=== PATIENT | female | born 1970 | race Caucasian/White ===

== ENCOUNTER → 2020-04-01 | Outpatient (CLI) | payer OTHER ==
[2020-04-01 13:01] LABS: HEMATOCRIT 42.3 % (36.0-47.0); HEMOGLOBIN 13.4 g/dl (12.0-15.5); MEAN CORPUSCULAR HEMOGLOBIN 29.8 pg (27.0-33.0); MEAN CORPUSCULAR HGB CONC 31.7 g/dl (32.0-36.5); PLATELET COUNT, AUTOMATED 229 10^3/uL (150-450); WHITE BLOOD COUNT 6.8 10^3/uL (4.0-10.0)
[2020-04-01 13:32] LABS: ALBUMIN 4.1 GM/DL (3.2-5.2); ALT/SGPT 22 U/L (12-78); BILIRUBIN,TOTAL 0.4 MG/DL (0.2-1.0); BLOOD UREA NITROGEN 13 MG/DL (7-18); CALCIUM LEVEL 9.2 MG/DL (8.5-10.1); CARBON DIOXIDE LEVEL 31 MEQ/L (21-32); CHLORIDE LEVEL 106 MEQ/L (98-107); CHOLESTEROL LEVEL 253 MG/DL (<200); CHOLESTEROL RISK RATIO 5.883 (<5); CREATININE FOR GFR 0.69 MG/DL (0.55-1.30); GLOMERULAR FILTRATION RATE > 60.0 (>51); GLUCOSE, FASTING 65 MG/DL (70-100); HDL CHOLESTEROL 43 MG/DL (>40); LDL CHOLESTEROL 167 MG/DL (<100); NON-HDL-C 210 MG/DL; POTASSIUM SERUM 4.2 MEQ/L (3.5-5.1); SODIUM LEVEL 140 MEQ/L (136-145); TOTAL PROTEIN 7.2 GM/DL (6.4-8.2); TRIGLYCERIDES LEVEL 215 MG/DL (<150)
[2020-04-01 13:33] LABS: TOTAL 25(OH) VITAMIN D 44.4 NG/ML (30.0-100.0)
[2020-04-01 13:54] LABS: HEMOGLOBIN A1c 5.4 %
--- NOTE | 2020-04-11 18:43 | ECGEPIP ---
[facility] Test Date: 2020-04-01 Pat Name: PASQUALE GIBSON Department: Room: - Gender: Female Employee Relations Assistant: SUMMER : 1970 Requested By: Alycia Evans Order Number: [id number] Reading MD: Indra Perez Measurements Intervals [place] Rate: 55 P: 34 MA: 202 QRS: 10 QRSD: 74 T: -7 QT: 408 QTc: 391 Interpretive Statements SINUS BRADYCARDIA NONSPECIFIC ST/T ABN'S CLINICAL CORRELATION ADVISED SEE DOWNTIME SCANNED REPORT
--- NOTE | 2020-04-21 13:20 | REP ---
TWO-VIEW CHEST HISTORY: Hypertension and fatigue. COMPARISON: None. FINDINGS: Two views of the chest are performed. There is no acute infiltrate. Lungs are clear. Heart is normal in size. Mediastinal silhouette is unremarkable. There are mild diffuse degenerative changes of the spine. IMPRESSION: No active pulmonary disease. MTDD
== END ==
LOC: M LAB 11:35
PROVIDERS: ATTEND Family Medicine
DX: I10 Essential (primary) hypertension (principal)

== ENCOUNTER → 2020-04-08 | Outpatient (CLI) | payer OTHER ==
--- NOTE | 2020-04-09 10:01 | REPMRS ---
Patient History The patient states she has not had a clinical breast exam in over a year. Digital Woman Screen Mammo: April 08, 2020 - Exam #: [id number] Bilateral CC and MLO view(s) were taken. Technologist: Ioana Rosario Technologist Prior study comparison: February 23, 2016, bilateral digital woman screen mammo, performed at [facility]. May 29, 2012, bilateral digital woman screen mammo, performed at [facility]. FINDINGS: There are scattered fibroglandular densities. The [place] volumetric breast density category is:B. There has been no change in the appearance of the mammogram from the prior studies. There is a mild amount of scattered fibroglandular density which is fairly symmetric. There is no interval development of dominant mass, architectural distortion, or grouped microcalcification suggestive of malignancy. 3-D tomosynthesis shows no additional findings. Assessment: BI-RADS/ACR category 1 mammogram. Negative Mammogram. Recommendation Routine screening mammogram of both breasts in 1 year (for women over age 40). This patient's Lifetime Breast Cancer Risk is estimated at 8.0 %. This mammogram was interpreted with the aid of an FDA-approved computer-aided dectection system. Electronically Signed By: Jason Saldivar MD 04/09/20 [id number]
== END ==
LOC: M WHC 09:38
PROVIDERS: ATTEND Family Medicine
DX: Z12.31 Encounter for screening mammogram for malignant neoplasm of breast (principal)

== ENCOUNTER → 2020-07-23 | Outpatient (CLI) | payer SELFPAY | LOC: M LABSMTC 11:33 | PROVIDERS: ATTEND Pediatrics | DX: Z20.828 Contact with and (suspected) exposure to other viral communicable diseases (principal) ==

== ENCOUNTER → 2021-01-21 | Outpatient (CLI) | payer OTHER ==
--- NOTE | 2021-01-21 11:21 | REP ---
INDICATION: SCIATICA COMPARISON: None. TECHNIQUE: AP, lateral, bilateral oblique, and coned-down views of the lumbar spine. FINDINGS: Very minimal degenerative changes at L5-S1 are suspected with mild facet hypertrophy and minimal disc space narrowing. Remainder of the lumbosacral spine is age-appropriate and within normal limits. No acute fracture/compression injury or acute subluxation. No obvious spondylolysis. IMPRESSION: Minimal focal degenerative changes at L5-S1. Otherwise normal lumbosacral spine radiographs. <Electronically signed by Brayan Adam > 01/21/21 [id number]
== END ==
LOC: M RAD 10:47
PROVIDERS: ATTEND Family Medicine
DX: M54.30 Sciatica, unspecified side (principal); M51.37 Other intervertebral disc degeneration, lumbosacral region

== ENCOUNTER 2021-04-12 19:09 | Emergency (ER) | payer OTHER ==
[~2021-04-12] VITALS: Ht 162.6 cm; Wt 76.7 kg
[2021-04-12] MEDS ORDERED: SIMV20TA22 (19:44)
[2021-04-12] MEDS ORDERED: MELO7.5T35 (19:44)
[2021-04-12] MEDS ORDERED: GABA-282 (19:44)
[2021-04-12] MEDS ORDERED: ALBU8.5H (19:44)
[2021-04-12 23:13] LABS: BASO # 0.1 10^3/uL (0.0-0.2); BASO % 0.7 % (0.0-1.0); EOS # 0.1 10^3/uL (0.0-0.5); EOS % 1.8 % (0.0-3.0); HEMATOCRIT 38.7 % (36.0-47.0); HEMOGLOBIN 12.5 g/dl (12.0-15.5); LYMPH # 2.1 10^3/uL (1.5-5.0); LYMPH % 31.4 % (24.0-44.0); MEAN CORPUSCULAR HEMOGLOBIN 29.3 pg (27.0-33.0); MEAN CORPUSCULAR HGB CONC 32.3 g/dl (32.0-36.5); MEAN CORPUSCULAR VOLUME 90.6 fl (80.0-96.0); MONO # 0.6 10^3/uL (0.0-0.8); MONO % 8.1 % (2.0-8.0); NEUTROPHILS # 3.9 10^3/uL (1.5-8.5); NEUTROPHILS % 57.7 % (36.0-66.0); PLATELET COUNT, AUTOMATED 243 10^3/uL (150-450); RED BLOOD COUNT 4.27 10^6/uL (4.00-5.40); WHITE BLOOD COUNT 6.8 10^3/uL (4.0-10.0)
--- NOTE | 2021-04-12 23:19 | REPVR ---
PROCEDURE INFORMATION: Exam: XR Chest Exam date and time: 04/12/2021 10:37 PM Age: 50 years old Clinical indication: Cough and shortness of breath; Additional info: Cough, SOB TECHNIQUE: Imaging protocol: XR of the chest. Views: 2 views. COMPARISON: CR Chest, 2 view PA, Lat 04/01/2020 12:16 PM FINDINGS: Lungs: Unremarkable. No consolidation. Pleural spaces: Unremarkable. No pleural effusion. No pneumothorax. Heart/Mediastinum: Unremarkable. No cardiomegaly. Bones/joints: Unremarkable. IMPRESSION: No acute infiltrates. Electronically signed by: Nikolai Goel On 04/12/2021 23:19:19 PM
[2021-04-12 23:54] LABS: BLOOD UREA NITROGEN 21 MG/DL (7-18); CALCIUM LEVEL 9.4 MG/DL (8.5-10.1); CARBON DIOXIDE LEVEL 28 MEQ/L (21-32); CHLORIDE LEVEL 109 MEQ/L (98-107); CREATININE FOR GFR 0.66 MG/DL (0.55-1.30); GLOMERULAR FILTRATION RATE > 60.0 (>51); GLUCOSE, FASTING 106 MG/DL (70-100); POTASSIUM SERUM 4.1 MEQ/L (3.5-5.1); SODIUM LEVEL 142 MEQ/L (136-145)
[2021-04-13] MEDS ORDERED: AZIT500T5 PO (00:19)
[2021-04-13 00:42] VITALS: BP 132/82
[2021-04-13] MEDS ORDERED: SYMBICORT 80/4.5MCG INHALER 6GM INH SCH (08:00)
== END 2021-04-13 00:45 | disposition home or self-care (01) ==
LOC: M ED 19:09
DX: J20.9 Acute bronchitis, unspecified (principal); J45.909 Unspecified asthma, uncomplicated; E78.2 Mixed hyperlipidemia; Z79.51 Long term (current) use of inhaled steroids; Z79.899 Other long term (current) drug therapy

== ENCOUNTER → 2021-05-27 | Outpatient (CLI) | payer OTHER ==
[~2021-05-27] MED LIST: ALBU8.5H; AZIT500T5 PO; GABA-282; MELO7.5T35; SIMV20TA22
[2021-05-27 14:37] LABS: ALBUMIN 4.1 GM/DL (3.2-5.2); ALT/SGPT 24 U/L (12-78); BILIRUBIN,TOTAL 0.4 MG/DL (0.2-1.0); BLOOD UREA NITROGEN 20 MG/DL (7-18); CALCIUM LEVEL 9.5 MG/DL (8.5-10.1); CARBON DIOXIDE LEVEL 30 MEQ/L (21-32); CHLORIDE LEVEL 107 MEQ/L (98-107); CREATININE FOR GFR 0.72 MG/DL (0.55-1.30); GLOMERULAR FILTRATION RATE > 60.0 (>51); GLUCOSE, FASTING 78 MG/DL (70-100); POTASSIUM SERUM 4.3 MEQ/L (3.5-5.1); SODIUM LEVEL 142 MEQ/L (136-145); TOTAL PROTEIN 7.3 GM/DL (6.4-8.2)
== END ==
LOC: M LAB 12:40
PROVIDERS: ATTEND Student in an Organized Health Care Education/Training Program
DX: Z91.09 Other allergy status, other than to drugs and biological substances (principal); M54.50 Low back pain, unspecified

== ENCOUNTER → 2021-07-12 | Outpatient (CLI) | payer OTHER | LOC: M CARPUL 13:24 | PROVIDERS: ATTEND Student in an Organized Health Care Education/Training Program | DX: J45.40 Moderate persistent asthma, uncomplicated (principal) ==

== ENCOUNTER 2021-09-13 13:36 | Emergency (ER) | payer OTHER ==
[~2021-09-13] VITALS: Ht 162.6 cm; Wt 76.5 kg
[2021-09-13 13:36] VITALS: BP 131/82
[2021-09-13] MEDS ORDERED: KETOROLAC 60MG 2ML VIAL IM ONE (17:55)
== END 2021-09-13 19:18 | disposition home or self-care (01) ==
LOC: M ED 13:36
DX: U07.1 COVID-19 (principal); R05.9 Cough, unspecified; J45.909 Unspecified asthma, uncomplicated; Z79.51 Long term (current) use of inhaled steroids; Z79.899 Other long term (current) drug therapy
CPT/HCPCS: 71045; 93005; 96372; 99284; J1885

== ENCOUNTER → 2022-01-31 | Outpatient (CLI) | payer OTHER | LOC: M WHC 12:32 | PROVIDERS: ATTEND Obstetrics & Gynecology | DX: Z12.31 Encounter for screening mammogram for malignant neoplasm of breast (principal); Z78.0 Asymptomatic menopausal state ==

== ENCOUNTER → 2022-01-31 | Outpatient (REF) | payer OTHER | LOC: M PLALAB 14:09 | PROVIDERS: ATTEND Obstetrics & Gynecology | DX: Z01.419 Encounter for gynecological examination (general) (routine) without abnormal findings (principal) ==

== ENCOUNTER → 2022-03-03 | Outpatient (REF) | payer OTHER | LOC: M SFHCPLAZ 11:15 | PROVIDERS: ATTEND Family Medicine | DX: Z53.9 Procedure and treatment not carried out, unspecified reason (principal) ==

== ENCOUNTER → 2023-03-22 | Outpatient (CLI) | payer OTHER, SELFPAY | LOC: M WHC 07:24 | PROVIDERS: ATTEND Nurse Practitioner Family | DX: Z12.31 Encounter for screening mammogram for malignant neoplasm of breast (principal) ==

== ENCOUNTER → 2024-03-26 | Outpatient (CLI) | payer OTHER ==
[~2024-03-26] MED LIST changes: -ALBU8.5H; +ALBU8.5H INH; +ATOR1TAB21 PO; +AZEL1SPR4 NARES; +CYCL5TAB PO; +FAMO20TA PO; +FLON1SPR; +FLUC10TA PO; +FLUT1BLS8 INH; +LAMO100T3 PO; +LANS30CA93 PO; +LEVOTAB10 PO; +LIDO1PAD TOP; +MELO15TA28 PO; -MELO7.5T35; +MELO7.5T35 PO; +MONT10TA97 PO; +PANT40TA29 PO; +TREL1AER INH; +XALA0.007 OU
== END ==
LOC: M WHC 09:37
PROVIDERS: ATTEND Nurse Practitioner Family
DX: Z12.31 Encounter for screening mammogram for malignant neoplasm of breast (principal)

== ENCOUNTER → 2024-03-26 | Outpatient (REF) | payer OTHER ==
[2024-03-26 14:36] LABS: Trichomonas vaginalis (AMP) NOT DETECTED (NEGATIVE)
[2024-03-26 15:00] LABS: GC DNA AMPLIFICATION NEGATIVE (NEGATIVE)
[2024-03-28 13:17] LABS: HPV APTIMA Not Detected (Not Detected)
== END ==
LOC: M SFHCWAGY 12:40
PROVIDERS: ATTEND Nurse Practitioner Family
DX: N95.2 Postmenopausal atrophic vaginitis (principal); R30.0 Dysuria; Z11.3 Encounter for screening for infections with a predominantly sexual mode of transmission

== ENCOUNTER 2024-04-16 09:34 | Day surgery (SDC) | payer OTHER ==
[~2024-04-16] VITALS: Ht 160 cm; Wt 69.4 kg
[2024-04-16] MEDS: NS 1,000 ML IV ONE (11:00)
[2024-04-16] MEDS ORDERED: propofoL 200 MG/20 ML VIAL As Ordered ONE (11:22)
[2024-04-16 13:30] VITALS: TEMP 99
[2024-04-16] MEDS: ONDANSETRON 4MG 2ML VIAL IV ONE (13:55)
[2024-04-16] MEDS: ACETAMINOPHEN 500 MG TAB PO ONE (14:10)
[2024-04-16 14:20] VITALS: BP 136/70; O2SAT 99
== END 2024-04-16 14:34 | disposition home or self-care (01) ==
LOC: M OPP 09:34
PROVIDERS: ATTEND Internal Medicine Gastroenterology
DX: Z12.11 Encounter for screening for malignant neoplasm of colon (principal); R12 Heartburn; K21.9 Gastro-esophageal reflux disease without esophagitis; K31.7 Polyp of stomach and duodenum; K44.9 Diaphragmatic hernia without obstruction or gangrene; I10 Essential (primary) hypertension; E78.5 Hyperlipidemia, unspecified; F41.9 Anxiety disorder, unspecified; F32.A Depression, unspecified; F43.10 Post-traumatic stress disorder, unspecified; G47.33 Obstructive sleep apnea (adult) (pediatric); Z87.891 Personal history of nicotine dependence
CPT/HCPCS: 43251; 45378; 88305; J2405

== ENCOUNTER → 2024-05-24 | Outpatient (CLI) | payer OTHER ==
[~2024-05-24] MED LIST changes: +BARIUM SULFATE 700 MG TABLET (E-Z-DISK) As Ordered ONE; +E-Z-PAQUE 96% w/w SUSP 176GM BTL As Ordered ONE; +GABA-1172; -GABA-282; +VARIBAR NECTAR 40% w/v 240ML SUSP BTL As Ordered ONE; +VARIBAR PUDDING 40% w/v 230ML TUBE As Ordered ONE
== END ==
LOC: M RAD 10:06
PROVIDERS: ATTEND Physician Assistant Medical
DX: R05.9 Cough, unspecified (principal)

== ENCOUNTER → 2025-03-31 | Outpatient (CLI) | payer OTHER ==
[~2025-03-31] MED LIST changes: -BARIUM SULFATE 700 MG TABLET (E-Z-DISK) As Ordered ONE; -CYCL5TAB PO; +CYCL5TAB4 PO; -E-Z-PAQUE 96% w/w SUSP 176GM BTL As Ordered ONE; -VARIBAR NECTAR 40% w/v 240ML SUSP BTL As Ordered ONE; -VARIBAR PUDDING 40% w/v 230ML TUBE As Ordered ONE
== END ==
LOC: M WHC 09:15
PROVIDERS: ATTEND Nurse Practitioner Family
DX: Z12.31 Encounter for screening mammogram for malignant neoplasm of breast (principal); R92.323 Mammographic fibroglandular density, bilateral breasts